=== PATIENT | male | born 1960 | race Caucasian/White ===

== ENCOUNTER 2019-09-07 06:55 | Day surgery (SDC) | payer OTHER, BC ==
[~2019-09-07 06:55] MED LIST: Lactated Ringers 1,000 ML IV SCH; Sodium Chloride 0.9% 10 ML Syringe FLUSH PRN
[2019-09-07] MEDS ORDERED: Ondansetron 4 MG/2 ML SDV IV ONE (06:56)
[2019-09-07] MEDS ORDERED: Lidocaine 1% 30 ML SDV ONE ×2 (06:56→07:48)
[2019-09-07] MEDS ORDERED: Propofol 200 MG/20 ML SDV IV ONE (06:56)
[2019-09-07] MEDS ORDERED: Bupivacaine 0.5% 30 ML SDV ONE ×2 (06:56→07:48)
[2019-09-07] MEDS ORDERED: Midazolam 1 MG/ML 2 ML SDV IV ONE (06:56)
[2019-09-07] MEDS ORDERED: Ketorolac 30 MG/ML SDV IVPUSH ONE (06:56)
[2019-09-07] MEDS ORDERED: fentaNYL 100 MCG/2 ML SDV IV ONE (06:56)
[2019-09-07] MEDS ORDERED: ceFAZolin 2 GM in Premix Bag 1 BAG IV ONE (08:00)
[2019-09-07] MEDS ORDERED: Bupivacaine 0.5% 30 ML SDV INJECT ONE ×6 (08:33→09:26)
[2019-09-07] MEDS ORDERED: Lidocaine 1% 30 ML SDV INJECT ONE ×6 (08:33→09:26)
[2019-09-07] MEDS ORDERED: Acetaminophen/oxyCODONE 325-5 MG Tab PO PRN (09:52)
--- NOTE | 2019-09-07 09:54 | PCM.OPNOTE ---
- General Post-Op/Procedure Note Date of Surgery/Procedure: 09/07/19 Operative Procedure(s): left foot open plantar fasciectomy with bone spur excision Pre Op Diagnosis: left foot plantar fasciosis with bone spur Post-Op Diagnosis: shen Anesthesia Technique: Local, MAC Primary Surgeon: Janice Jacobo Anesthesia Provider: Edmond Benito EBL in mLs: 5 Complications: none Condition: Good Free Text/Narrative:: Intake & Output 09/06/19 09/07/19 09/07/19 22:59 06:59 14:59 Intake Total 50 Balance 50 Pt tolerated procedure well and was transported to recovery with vascular status intact to [facility]. Well padded compression dressing applied.
[2019-09-07 13:48] VITALS: BP 119/70; PULSE 54
--- NOTE | 2019-09-07 18:35 | OR ---
DATE: 09/07/2019 PREOPERATIVE DIAGNOSIS: Left foot chronic plantar fasciitis with calcaneal bone spur. POSTOPERATIVE DIAGNOSIS: Left foot chronic plantar fasciitis with calcaneal bone spur. PROCEDURE PERFORMED: Left foot open plantar fasciectomy with bone spur excision of the calcaneus. ANESTHESIA: Local MAC with preoperative local block of 10 mL 1:1 mixture of 1% lidocaine plain and 0.5% Marcaine plain. TOURNIQUET: Tourniquet time 43 minutes, pneumatic ankle tourniquet. ESTIMATED BLOOD LOSS: Minimal. SPECIMEN: None. COMPLICATIONS: None. INDICATIONS: Bonifacio is a 58-year-old male who presents with chronic left heel pain. I have seen him in the past and he has failed conservative options including activity and shoe modifications, inserts, heel injections, and physical therapy exercises. The patient voiced good understanding of proposed procedure and possible complications and elects to have surgery at this time. On x-rays of the left foot, it did show a plantar calcaneal spur present, no signs of fracture. DESCRIPTION OF PROCEDURE: The patient was taken to the operating room lying in a supine position. After adequate anesthesia induction as described above, the left foot was prepped and draped in usual sterile fashion. A pneumatic ankle tourniquet was inflated to 225 mmHg. Attention was then directed to the medial plantar heel where an approximately 3 cm transverse incision was made to gain access to the plantar fascia band. Sharp and blunt dissection were performed down to the level of the plantar fascia band, which was noted to be severely thickened. A large 1.5 x 1.5 section of the plantar fascia ligament at the central medial portion was excised and there was no further tightness at the plantar fascia in this area. The bone spur was then palpated and a rongeur was used to remove the bone spur. A bone rasp was used to rasp any rough edges. Fluoroscopy was used to verify adequate resection of the plantar bone spur on the calcaneus. The area was again palpated and no further bone spur was palpated and the edges were smoothed. The area was irrigated with copious amounts of sterile saline. Deep closure was completed with 0 Vicryl and skin closure was completed with 4-0 nylon. The area was dressed with Xeroform to the incision site, fluffs, Webril, and Omar wrap. He was placed into a CAM boot nonweightbearing and instructed not to remove the boot, to keep his foot at 90 degrees. The patient tolerated the procedure and anesthesia well and left the operating room for recovery with vascular status intact as noted by immediate hyperemia upon deflation of the ankle tourniquet. The patient was then discharged home when he met hospital discharge requirements. [facility] /[id number]
== END 2019-09-07 10:33 | disposition home or self-care (01) ==
LOC: DL.SDS 06:55
PROVIDERS: ATTEND Podiatrist
DX: M77.32 Calcaneal spur, left foot (principal); M72.2 Plantar fascial fibromatosis; Z79.82 Long term (current) use of aspirin
CPT/HCPCS: 28060; 28119; J0690; J1885; J2001; J2250; J2405; J2704; J3010; J3490; J7120; 01480

== ENCOUNTER 2021-08-13 05:29 | Day surgery (SDC) | payer OTHER ==
[2021-08-13] MEDS ORDERED: Midazolam 1 MG/ML 2 ML SDV IV ONE ×7 (05:30→07:13)
[2021-08-13] MEDS ORDERED: Dextrose 5%-0.45% NaCl 1,000 ML IV SCH (05:30)
[2021-08-13] MEDS ORDERED: fentaNYL 100 MCG/2 ML SDV IV ONE ×3 (05:30→07:05)
[2021-08-13] MEDS ORDERED: Midazolam 1 MG/ML 2 ML SDV ONE (05:33)
[2021-08-13] MEDS ORDERED: fentaNYL 100 MCG/2 ML SDV ONE (05:34)
[2021-08-13 12:27] VITALS: BP 131/76; PULSE 59
== END 2021-08-13 09:45 | disposition home or self-care (01) ==
LOC: DL.ENDO 05:29
PROVIDERS: ATTEND Internal Medicine Gastroenterology
DX: D12.3 Benign neoplasm of transverse colon (principal); K57.31 Diverticulosis of large intestine without perforation or abscess with bleeding; K64.8 Other hemorrhoids; E66.09 Other obesity due to excess calories; Z98.890 Other specified postprocedural states; Z90.49 Acquired absence of other specified parts of digestive tract; Z01.812 Encounter for preprocedural laboratory examination; Z20.822 Contact with and (suspected) exposure to COVID-19; Z68.33 Body mass index [BMI] 33.0-33.9, adult
CPT/HCPCS: 45385; 87635; J2250; J3010; J7042; U0002

== ENCOUNTER 2022-04-14 09:00 | Emergency (ER) | payer OTHER ==
[2022-04-14] MEDS ORDERED: Ketorolac 30 MG/ML SDV IM ONE (11:40)
[2022-05-08 13:19] LABS: ANION GAP 14.4 mEq/L (7-13); CHLORIDE,CL 105 mmol/L (98-107); ESTIMATED GFR 89 mL/min (>=60); SODIUM,NA 141 mmol/L (136-145)
== END 2022-04-14 11:42 | disposition home or self-care (01) ==
LOC: DL.ED 09:00
DX: N43.3 Hydrocele, unspecified (principal)
CPT/HCPCS: 36415; 76870; 80053; 81003; 83605; 84145; 85025; 86140; 96372; 99284; J1885

== ENCOUNTER 2024-02-23 12:35 | Emergency (ER) | payer OTHER ==
[2024-02-23 12:58] VITALS: BP 135/89; PULSE 69
[2024-02-23] MEDS: Ketorolac 30 MG/ML SDV IM ONE (13:19)
[2024-02-23] MEDS: Dexamethasone 4 MG/ML SDV PO ONE (13:19)
== END 2024-02-23 14:37 | disposition home or self-care (01) ==
LOC: DL.ED 12:35
DX: H57.89 Other specified disorders of eye and adnexa (principal); Z79.899 Other long term (current) drug therapy
CPT/HCPCS: 70450; 96372; 99283; 99284; J1885; J8540

== ENCOUNTER 2024-05-11 13:18 | Emergency (ER) | payer OTHER ==
[2024-05-11] MEDS ORDERED: Sodium Chloride 0.9% 10 ML Syringe FLUSH PRN (13:39)
[2024-05-11 13:51] LABS: BASOPHILS PERCENT AUTO 0.2 % (0.0-1.0); HEMATOCRIT 40.4 % (40.0-54.0); HEMOGLOBIN 13.4 g/dL (14.0-18.0); LYMPHOCYTES PERCENT AUTO 23.4 % (20.5-50.1); MEAN CORPUSCULAR HEMOGLOBIN 29.6 pg (27.0-34.0); MEAN CORPUSCULAR HGB CONC 33.2 g/dL (33.0-35.0); MEAN CORPUSCULAR VOLUME 89.4 fL (80-100); MONOCYTES PERCENT AUTO 11.8 % (2-8); NEUTROPHILS PERCENT AUTO 63.6 % (42.2-75.2); PLATELET COUNT,PLT 170 10^3/uL (150-450); RED BLOOD CELL COUNT 4.52 10^6/uL (4.6-6.2)
[2024-05-11 13:53] VITALS: BP 163/87; PULSE 73
[2024-05-11 14:19] LABS: APPEARANCE,URINE CLEAR (CLEAR); BILIRUBIN,URINE NEGATIVE (NEGATIVE); COLOR,URINE YELLOW (YELLOW); GLUCOSE,URINE NEGATIVE (NEGATIVE); KETONES,URINE NEGATIVE (NEGATIVE); LEUKOCYTE ESTERASE,URINE NEGATIVE (NEGATIVE); NITRITE,URINE NEGATIVE (NEGATIVE); OCCULT BLOOD,URINE NEGATIVE (NEGATIVE); PH,URINE 5.5 (5.0-9.0); PROTEIN,URINE NEGATIVE (NEGATIVE); UROBILINOGEN,URINE 0.2 mg/dL (0.2-1.0)
[2024-05-11 14:20] LABS: A/G RATIO 1.1; ALBUMIN 3.4 g/dL (3.4-5.0); ANION GAP 14.8 mEq/L (7-13); BILIRUBIN TOTAL 0.3 mg/dL (0.2-1.0); BUN/CREATININE RATIO 13.9 (No establ ref range); C-REACTIVE PROTEIN 3.21 ng/dL (<=0.50); CALCIUM 8.8 mg/dL (8.5-10.1); CREATININE 1.01 mg/dL (0.70-1.30); EST CRCL DRUG DOSING (CG) 82.17 mL/min; MAGNESIUM 1.7 mg/dL (1.8-2.4); POTASSIUM,K 3.8 mmol/L (3.5-5.1); PROTEIN TOTAL,TP 6.4 g/dL (6.4-8.2)
[2024-05-11] MEDS ORDERED: Iopamidol 612 MG/ML 100 ML Bottle IVPUSH ONE (14:23)
[2024-05-11] MEDS: Lactulose Soln 10 GM/15 ML 30 ML UD Cup PO ONE (16:30)
== END 2024-05-11 16:42 | disposition home or self-care (01) ==
LOC: DL.ED 13:18
DX: K59.00 Constipation, unspecified (principal); M19.90 Unspecified osteoarthritis, unspecified site; Z90.49 Acquired absence of other specified parts of digestive tract; Z96.659 Presence of unspecified artificial knee joint; Z79.82 Long term (current) use of aspirin; Z79.2 Long term (current) use of antibiotics; Z79.899 Other long term (current) drug therapy
CPT/HCPCS: 36415; 71260; 74177; 80053; 81003; 83615; 83735; 84484; 85025; 86140; 93005; 99285; A9270; 93010; 99284

== ENCOUNTER 2024-09-08 16:18 | Emergency (ER) | payer OTHER ==
[2024-09-08] MEDS: Acetaminophen 325 MG Tab PO ONE (17:35)
[2024-09-08] MEDS: Sodium Chloride 0.9% 1,000 ML IV SCH (17:36)
[2024-09-08 17:51] LABS: BASOPHILS PERCENT AUTO 0.2 % (0.0-1.0); EOSINOPHILS PERCENT AUTO 0.8 % (1.0-3.0); HEMATOCRIT 42.9 % (40.0-54.0); HEMOGLOBIN 14.1 g/dL (14.0-18.0); LYMPHOCYTES PERCENT AUTO 13.8 % (20.5-50.1); MEAN CORPUSCULAR HEMOGLOBIN 29.6 pg (27.0-34.0); MEAN CORPUSCULAR HGB CONC 32.9 g/dL (33.0-35.0); MEAN CORPUSCULAR VOLUME 90.1 fL (80-100); MONOCYTES PERCENT AUTO 10.3 % (2-8); NEUTROPHILS PERCENT AUTO 74.9 % (42.2-75.2); PLATELET COUNT,PLT 155 10^3/uL (150-450); RED BLOOD CELL COUNT 4.76 10^6/uL (4.6-6.2)
[2024-09-08 18:13] LABS: A/G RATIO 1.1; ALBUMIN 3.6 g/dL (3.4-5.0); ANION GAP 11.9 mEq/L (7-13); BILIRUBIN DIRECT 0.1 mg/dL (0.0-0.2); BILIRUBIN INDIRECT 0.3; BILIRUBIN TOTAL 0.4 mg/dL (0.2-1.0); CALCIUM 8.8 mg/dL (8.5-10.1); CREATININE 1.29 mg/dL (0.70-1.30); EST CRCL DRUG DOSING (CG) 64.33 mL/min; POTASSIUM,K 3.9 mmol/L (3.5-5.1); PROTEIN TOTAL,TP 6.9 g/dL (6.4-8.2)
[2024-09-08] MEDS ORDERED: Iopamidol 612 MG/ML 100 ML Bottle IVPUSH ONE (18:22)
[2024-09-08] MEDS: Iopamidol 755 Mg/ML 100 ML Bottle IVPUSH ONE (18:38)
[2024-09-08] MEDS: Ketorolac 30 MG/ML SDV IVPUSH ONE (20:30)
[2024-09-08] MEDS: methylPREDNISolone Sodium Succinate 125 MG/2 ML SDV IVPUSH ONE (20:32)
[2024-09-08] MEDS: Albuterol/Ipratropium 3.0-0.5 MG/3 ML Neb Soln NEB ONE (20:35)
[2024-09-08] MEDS: Albuterol 6.7 GM Inhaler INH ONE (20:42)
[2024-09-08 20:52] VITALS: BP 144/76; PULSE 78
== END 2024-09-08 20:49 | disposition home or self-care (01) ==
LOC: DL.ED 16:18
DX: J20.8 Acute bronchitis due to other specified organisms (principal)
CPT/HCPCS: 36415; 71045; 71275; 80048; 80076; 84484; 85025; 87040; 87428; 93005; 93010; 96374; 96375; 99284; 99285; A9270; J1885; J2919; J7030; J7620; Q9967